=== PATIENT | female | born 1995 | race Caucasian/White ===

== ENCOUNTER 2022-04-13 05:05 | Inpatient (IN) | payer OTHER ==
[2022-04-13] MEDS: Lactated Ringers 1,000 ML IV SCH ×2 (05:35→07:26)
[2022-04-13] MEDS ORDERED: Citric Acid/Sodium Citrate Solution 30 ML Cup PO ONE (07:00)
[2022-04-13] MEDS ORDERED: Metoclopramide 10 MG/2 ML SDV IVPUSH ONE (07:00)
[2022-04-13] MEDS ORDERED: fentaNYL 100 MCG/2 ML SDV IVPUSH PRN (07:05)
[2022-04-13] MEDS ORDERED: Ondansetron 4 MG/2 ML SDV IVPUSH PRN (07:05)
[2022-04-13] MEDS ORDERED: diphenhydrAMINE 50 MG/ML SDV IVPUSH PRN ×2 (07:05→10:00)
[2022-04-13] MEDS ORDERED: Meperidine 50 MG/ML Vial IVPUSH PRN (07:05)
[2022-04-13] MEDS ORDERED: Oxytocin 10 Units/1 ML SDV ONE ×3 (07:12→08:20)
[2022-04-13] MEDS ORDERED: Bupivacaine 0.5% 30 ML SDV ONE (07:12)
[2022-04-13] MEDS ORDERED: Morphine PF 10 MG/10 ML SDV ONE (07:12)
[2022-04-13] MEDS ORDERED: Phenylephrine HCl In 0.9% NaCl 1 MG/10 ML Vial ONE (07:12)
[2022-04-13] MEDS ORDERED: Ondansetron 4 MG/2 ML SDV ONE (07:12)
[2022-04-13] MEDS ORDERED: ceFAZolin 2 GM in Sodium Chloride 0.9% 50 ML IV ONE (07:45)
[2022-04-13] MEDS ORDERED: ceFAZolin 2 GM Vial ONE (07:51)
[2022-04-13] MEDS ORDERED: Oxytocin/Lactated Ringers 20 UNIT/1,000 ML BAG IV SCH (08:00)
[2022-04-13] MEDS ORDERED: ePHEDrine 50 MG/ML SDV ONE (08:06)
[2022-04-13] MEDS ORDERED: Ondansetron 4 MG/2 ML SDV IV PRN (10:00)
[2022-04-13] MEDS ORDERED: Naloxone 0.4 MG/ML SDV IVPUSH PRN (10:00)
[2022-04-13] MEDS ORDERED: Dextrose 5%-Lactated Ringers 1,000 ML IV SCH (10:00)
[2022-04-13] MEDS ORDERED: Acetaminophen/HYDROcodone 325-5 MG Tab PO PRN (10:00)
[2022-04-13] MEDS ORDERED: ePHEDrine 50 MG/ML SDV IVPUSH PRN (10:00)
[2022-04-13] MEDS: Ibuprofen 600 MG Tab PO SCH ×3 (11:22→21:33)
[2022-04-13] MEDS: Docusate Sodium 100 MG Cap PO SCH ×2 (11:23→20:45)
[2022-04-13] MEDS: Simethicone 80 MG Tab.Chew PO SCH ×3 (15:18→20:45)
[2022-04-13] MEDS ORDERED: Promethazine 25 MG/ML SDV IM PRN (15:24)
[2022-04-14] MEDS: Ibuprofen 600 MG Tab PO SCH ×4 (04:29→21:37)
[2022-04-14] MEDS: Docusate Sodium 100 MG Cap PO SCH ×2 (09:36→21:37)
[2022-04-14] MEDS: Prenatal Multivitamin with Calcium/Folic Acid/Iron Tab PO SCH (09:36)
[2022-04-14] MEDS: Simethicone 80 MG Tab.Chew PO SCH ×4 (09:36→21:37)
[2022-04-15] MEDS: Ibuprofen 600 MG Tab PO SCH (04:02)
[2022-04-15] MEDS: Docusate Sodium 100 MG Cap PO SCH (09:00)
[2022-04-15] MEDS: Prenatal Multivitamin with Calcium/Folic Acid/Iron Tab PO SCH (09:00)
[2022-04-15] MEDS: Simethicone 80 MG Tab.Chew PO SCH (09:00)
== END 2022-04-15 10:20 | disposition home or self-care (01) | DRG 788 ==
LOC: JD.OB 05:05
PROVIDERS: ADMIT Obstetrics & Gynecology; ATTEND Obstetrics & Gynecology
PROC: 10D00Z1 Extraction of Products of Conception, Low, Open Approach (ICD-10-PCS; principal; 2022-04-13)
PROC: 3E0334Z Introduction of Serum, Toxoid and Vaccine into Peripheral Vein, Percutaneous Approach (ICD-10-PCS; 2022-04-13)
DX: O34.211 Maternal care for low transverse scar from previous cesarean delivery (principal); Z37.0 Single live birth; O26.893 Other specified pregnancy related conditions, third trimester; Z3A.39 39 weeks gestation of pregnancy; Z87.891 Personal history of nicotine dependence; Z90.49 Acquired absence of other specified parts of digestive tract; Z86.16 Personal history of COVID-19; Z67.41 Type O blood, Rh negative
CPT/HCPCS: 01961; 36415; 59025; 85025; 85461; 86592; 86850; 86900; 86901; 94762; A9270-GY; J0690; J2274; J2405; J2590; J2765; J2790; J3490; J7120; J7121